=== PATIENT | male | born 1935 ===

== ENCOUNTER 2022-06-11 18:23 | Outpatient (REF) | payer MEDICARE, BC, SELFPAY ==
[2022-06-11 18:55] LABS: HCT 42.5 % (40.0-50.0); HGB 14.1 g/dL (13.5-17.5); MCH 30.3 pg (27.0-33.0); MCHC 33.2 % (32.0-36.0); MCV 91 fL (80-95); MPV 11.3 fL (8.0-11.0); Platelet Count 150 10^3/uL (130-400); RBC 4.65 10^6/uL (4.36-5.78); RDW 12.8 % (11.8-14.1); RDW-SD 42.3 fL; WBC 6.55 10^3/uL (4.4-10.8)
[2022-06-11 19:30] LABS: Hemoglobin A1C 5.6 % (<5.7)
[2022-06-11 19:53] LABS: Anion Gap 6.7 mmol/L (3-11); BUN 26 mg/dL (7-18); CO2 29.3 mmol/L (21.0-32.0); CREATININE 1.3 mg/dL (0.70-1.30); Calcium 8.9 mg/dL (8.5-10.1); Chloride 105 mmol/L (98-107); Estimated GFR 54.17 (mL/min/1.73m2); Glucose 105 mg/dL (74-106); Potassium 4.1 mmol/L (3.5-5.1); Sodium 141 mmol/L (136-145)
== END 2022-06-11 18:24 | disposition home or self-care (01) ==
LOC: NCHCN 18:23
PROVIDERS: Visit Provider Family Medicine
DX: R73.9 Hyperglycemia, unspecified (principal); K21.9 Gastro-esophageal reflux disease without esophagitis; Z00.00 Encounter for general adult medical examination without abnormal findings; N40.1 Benign prostatic hyperplasia with lower urinary tract symptoms
CPT/HCPCS: 80048; 85027; 83036

== ENCOUNTER 2023-08-26 14:01 | Outpatient (REF) | payer MEDICARE, BC, SELFPAY ==
[2023-08-26 20:59] LABS: Abs Immature Grans 0.03 10^3/uL (0.0-0.06); Absolute Basophil Count 0.05 10^3/uL (0.0-0.2); Absolute Eosinophil Count 0.17 10^3/uL (0.0-0.7); Absolute Lymphocyte Count 1.22 10^3/uL (1.2-3.4); Absolute Monocyte Count 0.72 10^3/uL (0.1-0.8); Absolute Neutrophil Count 4.85 10^3/uL (1.2-6.7); Basophils % 0.7; Eosinophils % 2.4; HCT 45.5 % (40.0-50.0); Immature Grans % 0.4; Lymphocytes % 17.3; MCH 29.8 pg (27.0-33.0); MCV 91 fL (80-95); Monocytes % 10.2; Platelet Count 153 10^3/uL (130-400); RBC 5.03 10^6/uL (4.36-5.78); RDW 12.9 % (11.8-14.1); RDW-SD 42.5 fL; WBC 7.04 10^3/uL (4.4-10.8)
[2023-08-26 21:34] LABS: Anion Gap 4.7 mmol/L (3-11); BUN 24 mg/dL (7-18); CO2 29.3 mmol/L (21.0-32.0); CREATININE 1.2 mg/dL (0.70-1.30); Calcium 8.8 mg/dL (8.5-10.1); Chloride 103 mmol/L (98-107); Estimated GFR 59.26 (mL/min/1.73m2); Glucose 99 mg/dL (74-106); Potassium 4.6 mmol/L (3.5-5.1); Sodium 137 mmol/L (136-145); TSH 1.56 uIU/mL (0.36-3.74); Vitamin B12 263 pg/mL (193-986)
== END 2023-08-26 14:02 | disposition home or self-care (01) ==
LOC: NCHCN 14:01
PROVIDERS: Visit Provider Family Medicine
DX: G62.9 Polyneuropathy, unspecified (principal); R79.89 Other specified abnormal findings of blood chemistry
CPT/HCPCS: 80048; 82607; 84443; 85025

== ENCOUNTER 2024-09-03 16:57 | Outpatient (REF) | payer MEDICARE, BC, SELFPAY ==
[2024-09-03 15:59] LABS: Anion Gap 4.1 mmol/L (3-11); BUN 22 mg/dL (7-18); CO2 30.9 mmol/L (21.0-32.0); CREATININE 1.3 mg/dL (0.70-1.30); Calcium 9.1 mg/dL (8.5-10.1); Chloride 106 mmol/L (98-107); Glucose 94 mg/dL (74-106); Potassium 5.4 mmol/L (3.5-5.1); Sodium 141 mmol/L (136-145); Vitamin B12 831 pg/mL (193-986)
== END 2024-09-03 16:58 | disposition home or self-care (01) ==
LOC: NCHCN 16:57
PROVIDERS: Visit Provider Family Medicine
DX: R79.89 Other specified abnormal findings of blood chemistry (principal); E53.9 Vitamin B deficiency, unspecified
CPT/HCPCS: 80048; 82607

== ENCOUNTER 2024-11-19 09:18 | Outpatient (REF) | payer MEDICARE, BC, SELFPAY ==
[2024-11-19 18:08] LABS: Anion Gap 12.1 mmol/L (3-11); BUN 20 mg/dL (7-18); CO2 25.9 mmol/L (21.0-32.0); CREATININE 1.2 mg/dL (0.70-1.30); Calcium 9.4 mg/dL (8.5-10.1); Chloride 106 mmol/L (98-107); Estimated GFR 58.53 (mL/min/1.73m2); Glucose 67 mg/dL (74-106); Magnesium 2.3 mg/dL (1.8-2.4); Potassium 4.6 mmol/L (3.5-5.1); Sodium 144 mmol/L (136-145); TSH (W/Ref FT4) 1.77 uIU/mL (0.36-3.74)
== END 2024-11-19 09:19 | disposition home or self-care (01) ==
LOC: NCHCN 09:18
PROVIDERS: Visit Provider Family Medicine
DX: I48.91 Unspecified atrial fibrillation (principal)
CPT/HCPCS: 80048; 83735; 84443